=== PATIENT | female | born 1990 | race Caucasian/White ===

== ENCOUNTER 2020-12-30 08:52 | Day surgery (SDC) | payer MEDICAID, SELFPAY ==
[~2020-12-30] VITALS: Ht 162.6 cm; Wt 65.8 kg
[2020-12-30 09:56] LABS: HCG,QUAL RESULT NEGATIVE (NEGATIVE)
[2020-12-30] MEDS ORDERED: MIDAZOLAM HCL 5 MG/5 ML VIAL ONE (10:47)
[2020-12-30] MEDS ORDERED: MEPERIDINE 100 MG INJ. 100 MG/ML VIAL ONE (10:47)
[2020-12-30] MEDS ORDERED: DIPHENHYDRAMINE INJ 50 MG/ML VIAL ONE (10:57)
[2020-12-30 13:23] VITALS: BP_SYST 99
== END 2020-12-30 12:50 | disposition home or self-care (01) ==
LOC: SDS 08:52 → SMU 08:54 → SDS 12:50
PROVIDERS: ATTEND Internal Medicine Gastroenterology
DX: Z12.0 Encounter for screening for malignant neoplasm of stomach (principal); D13.5 Benign neoplasm of extrahepatic bile ducts; K29.80 Duodenitis without bleeding; K31.7 Polyp of stomach and duodenum; K29.60 Other gastritis without bleeding; Z85.038 Personal history of other malignant neoplasm of large intestine; Z80.0 Family history of malignant neoplasm of digestive organs; Z79.899 Other long term (current) drug therapy; Z20.822 Contact with and (suspected) exposure to COVID-19
CPT/HCPCS: 36415; 43239; 43251; 84703; 87081; 88305; 88313; 99152; G0378; J1200; J2175; J2250; U0003